=== PATIENT | female | born 1965 | race Caucasian/White ===

== ENCOUNTER → 2024-04-20 17:32 | Outpatient (REF) | payer OTHER, SELFPAY | LOC: WDC 17:32 | PROVIDERS: ATTENDING PHYSICIAN Internal Medicine Hematology & Oncology | DX: Z12.31 Encounter for screening mammogram for malignant neoplasm of breast (principal) | CPT/HCPCS: 77063; 77067 ==

== ENCOUNTER → 2024-11-26 08:29 | Outpatient (REF) | payer OTHER, SELFPAY ==
[2024-11-26 09:13] LABS: % Basophils 1.1 % (0-2); % Eosinophils 4.1 % (0-6); % Immature Granulocytes 0.2 % (0-0.5); % Lymphocytes 35.6 % (20.5-51.1); % Monocytes 7.8 % (1.7-9.3); % Neutrophils 51.2 % (42.2-75.2); Absolute Basophils 0.1 10^3/uL (0-0.2); Absolute Eosinophils 0.2 10^3/uL (0-0.7); Absolute Lymphocytes 1.6 10^3/uL (1.2-3.4); Absolute Monocytes 0.3 10^3/uL (0.1-0.6); Absolute Neutrophils 2.2 10^3/uL (1.4-6.5); Hematocrit 39.1 % (37.0-47.0); Mean Corp Hgb Conc. 33.2 g/dL (33.0-37.0); Mean Corpuscular Hgb 32.5 pg (27.0-31.0); Mean Corpuscular Volume 97.8 fL (81.0-99.0); Mean Platelet Volume 10.6 fL (7.4-10.4); Nucleated Red Blood Cells % 0 %; Platelet Count 218 10^3/uL (130-400); Red Cell Dist. Width 13.3 % (11.5-14.5); White Blood Cell Count 4.4 10^3/uL (4.8-10.8)
[2024-11-26 09:58] LABS: ALT (SGPT) 19 U/L (0-35); AST (SGOT) 30 U/L (14-36); Albumin 4.5 g/dl (3.5-5.0); Alkaline Phosphatase 70 U/L (38-126); Blood Urea Nitrogen 22 mg/dl (7-17); Carbon Dioxide 25 mmol/L (22-30); Chloride 108 mmol/L (98-107); Direct Bilirubin 0.2 mg/dl (0.0-0.4); Glucose 105 mg/dl (70-99); Potassium 4.3 mmol/L (3.5-5.1); Sodium 140 mmol/L (135-145); Total Bilirubin 0.7 mg/dl (0.2-1.3); Total Protein 7.4 g/dl (6.3-8.2); eGFR > 60.00
== END ==
LOC: REG 08:29
PROVIDERS: ATTENDING PHYSICIAN Internal Medicine Hematology & Oncology
DX: C50.919 Malignant neoplasm of unspecified site of unspecified female breast (principal)
CPT/HCPCS: 36415; 80053; 82248; 85025

== ENCOUNTER → 2025-04-29 07:36 | Outpatient (REF) | payer OTHER, SELFPAY | LOC: WDC 07:36 | PROVIDERS: ATTENDING PHYSICIAN Internal Medicine Hematology & Oncology | DX: Z12.31 Encounter for screening mammogram for malignant neoplasm of breast (principal) | CPT/HCPCS: 77063; 77067 ==

== ENCOUNTER → 2025-06-24 07:46 | Outpatient (REF) | payer OTHER, SELFPAY ==
[2025-06-24 08:13] LABS: Hematocrit 39.1 % (37.0-47.0); Hemoglobin 12.9 g/dL (12.0-16.0); Mean Corp Hgb Conc. 33.0 g/dL (33.0-37.0); Mean Corpuscular Volume 97.8 fL (81.0-99.0); Nucleated Red Blood Cells % 0 %; Platelet Count 209 10^3/uL (130-400); Red Cell Dist. Width 12.8 % (11.5-14.5)
[2025-06-24 08:47] LABS: ALT (SGPT) 16 U/L (0-35); AST (SGOT) 25 U/L (14-36); Albumin 4.6 g/dl (3.5-5.0); Alkaline Phosphatase 61 U/L (38-126); Blood Urea Nitrogen 24 mg/dl (7-17); Calcium 9.9 mg/dl (8.4-10.2); Carbon Dioxide 26 mmol/L (22-30); Chloride 110 mmol/L (98-107); Glucose 104 mg/dl (70-99); Potassium 4.6 mmol/L (3.5-5.1); Sodium 144 mmol/L (135-145); Total Protein 7.7 g/dl (6.3-8.2); eGFR > 60.00
== END ==
LOC: REG 07:46
PROVIDERS: ATTENDING PHYSICIAN Internal Medicine Hematology & Oncology
DX: C50.919 Malignant neoplasm of unspecified site of unspecified female breast (principal)
CPT/HCPCS: 36415; 80053; 82248; 85025

== ENCOUNTER 2025-09-08 06:12 | Day surgery (SDC) | payer OTHER, SELFPAY ==
[2025-08-25 13:51] VITALS: BMI 27.2
[2025-09-08] VITALS (9 sets, daily range): BP systolic 128–155; BP diastolic 68–95; BMI 27.2
[2025-09-08] MEDS: TYLENOL 1000 MG PO (08:59)
[2025-09-08] MEDS: NORMOSOL-R/PLASMALYTE-A 1000 IV (08:59)
--- NOTE | 2025-09-08 15:17 | W.IMMPOSTOP ---
Surgical Immed Post Op Note
-
Primary Surgeon: ALIRIO Garcia MD
Assisting Surgeon:
Pre-op Diagnosis: History of left breast cancer, history of radiation
Post-op Diagnosis: Same
Procedure Performed: Revision left reconstructed breast, right mastopexy, fat grafting left breast
Anesthesia Type: General
Specimen / Cultures: Right breast tissue and skin
Estimated Blood Loss: 30 cc
Complications: None
Operative Findings: As expected
--- NOTE | 2025-09-08 15:17 | OR.RPT ---
Operative Report
Operative Report
Date of surgery: 09/08/2025
Surgeon: ALIRIO Garcia MD
Preoperative diagnosis:
1. History of left breast cancer
2. History of radiation
Postoperative diagnosis: Same
Procedure:
1. Revision to left reconstructed breast
2. Right breast mastopexy for balancing procedure
3. Fat grafting to the left reconstructed breast 180 cc
Anesthesia: General
Complications: None
EBL: 30 cc
Specimens: Right breast tissue and skin
Indications for procedure: Patient is a 59-year-old female with a history of breast cancer status post left lumpectomy and radiation therapy. She was left with asymmetry of her left radiated breast with her right [place] breast. She was larger and
ptotic on the right nonradiated side. Radiation left her with a fibrotic and tethered scar from a periareolar incision. She desired improved symmetry and contour as well as volume correction. A plan was made for revision to left reconstructed
breast with scar release to expand the lower pole. This will be paired with fat grafting to add volume, repair radiation effects and recreate the lower pole. The right breast would require a mastopexy with a modest tissue reduction. The scars
were reviewed at length. Risks were reviewed including fat necrosis, compromise of nipple areolar complex, abnormal scarring, wound healing difficulties, persistent asymmetry, hematoma, seroma and infection. Fat grafting donor site could develop
contour irregularities. She understood these to his desire to proceed.
Procedure in detail: Patient was identified preoperatively and the surgical site was confirmed to be the bilateral breast anterior abdomen and bilateral flanks. She was marked in the upright position. All questions were answered and consents were
confirmed. She was taken back the operating placed supine on table. Anesthesia was induced the patient was prepped and draped in the usual sterile fashion using ChloraPrep solution. Timeout the patient safety was performed was confirmed that
preoperative antibiotics have been administered and bilateral SCDs were placed. Procedure began with the injection 1% lidocaine with epinephrine in the proposed right mastopexy incisions. A 42 mm Sanivation cutter was used to sharron the new nipple
areolar complex. The markings were incised with a 15 blade and the skin within the vertical pattern markings was de-epithelialized. Medial and lateral pillars were then created with Bovie electrocautery and the inferior pole with resection of the
intervening volume. Skin and breast tissue was sent for pathology. Meticulous hemostasis was then ensured and a Marcaine block was performed in the pectoralis fascia. The medial lateral pillars were then approximated with 2-0 Vicryl's in series.
Mastopexy was completed with transposition of the nipple superiorly on the superior pedicle. This was sutured in place with combination of 3-0 Biosyn sutures and a 4-0 Biosyn subcuticular. The vertical lower pole incision was also closed in 2
additional layers with 3-0 and 4-0 Biosyn. Care was taken to obliterate the prior inframammary fold to elevate the breast footprint this was done with a combination of excisional approaches as well as lipo dissection. Tumescent solution was then
placed in the anterior abdomen and bilateral flanks as well as lower pole of the left breast. This was allowed to take effect while the right breast was be closed. Fat graft harvest was then performed using 4 mm cannula and following an SAF E
liposuction protocol. A total of approximately 800 cc Lipo aspirate was removed and this was processed with the pure graft system. This resulted in approximately 200 cc of fat for injection. The fat was rinsed with lactated Ringer's prior to
placing it in 10 cc syringes. The revision to the left reconstructed breast was completed prior to autologous fat grafting. This was performed via a series of rigotomies with the cutting edge of an 18-gauge needle. Upon adequate tethered scar
release, additional lower pole expansion was created with lipo dissection. A total of 180 cc was then distributed in the left breast in the lower pole as well as medial and upper pole. Access sites were closed with a 5-0 fast. Patient tolerated
the procedure well, was performed out complication. All counts were correct. All wounds were dressed. A compressive bra and abdominal binder were placed at the conclusion of the case. She was extubated taken the PACU for further care.
== END 2025-09-08 17:07 | disposition home or self-care (01) ==
LOC: SDS 06:12
PROVIDERS: ATTENDING PHYSICIAN Surgery Plastic and Reconstructive Surgery
DX: N64.89 Other specified disorders of breast (principal); N65.1 Disproportion of reconstructed breast; Z85.3 Personal history of malignant neoplasm of breast; Z92.3 Personal history of irradiation; Z98.890 Other specified postprocedural states
CPT/HCPCS: 19316; 19380; 15771; 15772 ×2; 93005